=== PATIENT | male | born 1985 | race African-American/Black ===

== ENCOUNTER 2017-10-21 12:03 | Emergency (ER) | payer BC ==
[2017-10-21] MEDS ORDERED: Ketorolac Tromethamine 60 MG/2 ML VIAL ONE (12:29)
[2017-10-21] MEDS ORDERED: Dexamethasone 4 MG TAB ONE (12:29)
[2017-10-21] MEDS ORDERED: diphenhydrAMINE 25 MG CAP ONE (12:29)
[2017-10-21] MEDS ORDERED: Metoclopramide HCl 10 MG TAB ONE (12:29)
== END 2017-10-21 12:46 | disposition home or self-care (01) ==
LOC: MADERS 12:03
DX: G43.909 Migraine, unspecified, not intractable, without status migrainosus (principal)
CPT/HCPCS: 96372; J1885; J8540